=== PATIENT | male | born 1990 | race African-American/Black ===

== ENCOUNTER 2020-03-29 17:12 | Inpatient (IN) | payer MEDICAID ==
[~2020-03-29] VITALS: Ht 180.3 cm; Wt 87.7 kg
[2020-03-29 17:12] VITALS: BP 121/82
--- NOTE | 2020-03-29 17:12 | NUR ---
ED Nurse Note: Pt brought in by friends, unconscious. Pt's friend not aware of pt's medical history or any medications he is on. Pt A+Ox0 with low respiratory rate of 10 breaths per minute. HR 122 on the monitor, sinus tach. ED MD at bedside using bag valve mask on patient. Pt O2 sat 90%. Right AC 18 g inserted and 0.4 mg narcan given IVP. Pt now has more of gag reflex, reacting only to deep painful stimuli.
[2020-03-29] MEDS ORDERED: Naloxone 1mg/ml 2ml ONE (17:15)
--- NOTE | 2020-03-29 17:15 | NUR ---
ED Nurse Note: 1 mg narcan given IVP. Pt vomited and suctioned. Pt able to open eyes, but does not follow commands and is A+Ox0. O2 saturation 100%. HR 115. BP stable. Pt afebrile.
--- NOTE | 2020-03-29 17:27 | Emergency Room Report ---
History of Present Illness General Chief Complaint: To Be Triaged Source: Friend Present Illness HPI The patient was brought to the emergency department by friends. He was unresponsive and transported to the trauma bay via wheelchair. They provided no history. The patient is unresponsive and unable to give history. Allergies: Coded Allergies: No Known Allergies (Unverified , 03/29/20) Patient History Limited by: medical condition Past Medical History: see triage record Social History: Reports: drug use Social History Narrative Brought by friends Reviewed Nursing Documentation: PMH: Agreed; PSxH: Agreed Review of Systems All Other Systems: limited Physical Exam Vital Signs Date Time Temp Pulse Resp B/P (MAP) Pulse Ox O2 Delivery O2 Flow Rate FiO2 03/29/20 17:12 98.3 122 10 121/82 90 Ambu-Bag 03/29/20 20:12 2.0 Sp02 EP Interpretation: reviewed, abnormal - Interpreted as low by me General Appearance: other - Unresponsive Eyes: bilateral eye Scleral Injection, bilateral eye other - Pinpoint pupils ENT: moist mucus membranes - Stomach contents in upper airway suctioned Neck: other - Flaccid Respiratory: rhonchi Cardiovascular #1: tachycardia - Initially however patient heart rate decreased into the 90s Cardiovascular #2: 2+ radial (R) Gastrointestinal: non tender, decreased bowel sounds Genitourinary: normal inspection Musculoskeletal: other - Flaccid Neurologic: other - Unresponsive Psychiatric: other - Unresponsive Skin: diaphoresis, mottled Procedures Critical Care Time Critical Care Time Total Critical Care Time: 60 min bedside evaluation and treatment excludes procedures (EKG). Reason for critical care: Respiratory failure and free cardiac arrest emergent care. Repeated evaluations Possible complications: hypotension, hypertension, [place], shock, arrhythmias, metabolic acidosis, end organ damage, respiratory failure. Interventions: Assisted ventilations, suctioning, Narcan, repeat evaluations, Narcan drip Course: Patient presented unresponsive. Patient not protecting his airway. Near respiratory arrest with assisted ventilations reversing this along with emergent treatment with Narcan. Aggressive suctioning with patient with most likely aspiration prior to suctioning started. Patient awake and Narcan drip begun. Initial lactate elevated. Fluid bolus administered. Antibiotics started for possible pneumonia. Patient hypoxic which is corrected on oxygen. Repeated evaluations. Discussed with admitting physician. Discussed with patient near and advised to seek help regarding substance abuse. Consultations: nursing staff, EMS, respiratory therapy, admitting physician Performed by: Dr. Guerin Tolerated well condition = critical but improved on Narcan drip and oxygen Medical Decision Making Diagnostic Impression: Primary Impression: Narcotic overdose Qualified Codes: T40.601A - Poisoning by unspecified narcotics, accidental (unintentional), initial encounter Additional Impressions: Elevated lactic acid level Aspiration pneumonia Qualified Codes: J69.0 - Pneumonitis due to inhalation of food and vomit Hypoxia Substance abuse Renal insufficiency ER Course Patient presents unresponsive without gag reflex. Differential includes hypoglycemia, overdose, other toxic ingestion, electrolyte abnormality, postictal state amongst others. The following is the emergent care that was initially administered to patient: Patient unresponsive without gag and obstructing upper airway. Immediately assisted ventilations by me. Heart rate initially 122 and dropped down to 90s and then O2 sat with my ventilations dropped to 88% of 96%. IV established and Narcan given IV. Initially 0.4 with some minimal response. Suctioning by me as patient smells that he vomited. 1 mg of Narcan given and patient started responding to orders and commands. Narcan drip ordered. 1724 As patient responded to Narcan most likely opiates involved with episode. Post Narcan the patient has a nonfocal neurologic exam and CT of the head is not indicated at this time. EKG ST 103. Labs with elevated WBC, elevated creat, elevated CK, + tox screen benzodiazepines, cocaine, amphetamines and THC.. CXR no infiltrates. O2 sats low. Oxygen begun. Called for elevated lactate. Bolus ordered and antibiotic coverage. 1809 no x-ray evidence of aspiration pneumonia however patient clinically has aspirated. Repeat lactate improved. Suspect multifactorial. Patient not with evidence of sepsis. Patient remains awake and responsive on Narcan drip. Patient stable on Narcan drip. Discussed with admitting physician. Laboratory Tests Test 03/29/20 17:13 03/29/20 18:50 White Blood Count 14.1 K/UL (4.8-10.8) H Red Blood Count 4.52 M/UL (4.70-6.10) L Hemoglobin 14.6 G/DL (14.2-18.0) Hematocrit 44.4 % (42.0-52.0) Mean Corpuscular Volume 98 FL (80-99) Mean Corpuscular Hemoglobin 32.3 PG (27.0-31.0) H Mean Corpuscular Hemoglobin Concent 32.9 G/DL (32.0-36.0) Red Cell Distribution Width 13.2 % (11.6-14.8) Platelet Count 315 K/UL (150-450) Mean Platelet Volume 6.2 FL (6.5-10.1) L Neutrophils (%) (Auto) % (45.0-75.0) Lymphocytes (%) (Auto) % (20.0-45.0) Monocytes (%) (Auto) % (1.0-10.0) Eosinophils (%) (Auto) % (0.0-3.0) Basophils (%) (Auto) % (0.0-2.0) Differential Total Cells Counted 100 Neutrophils % (Manual) 13 % (45-75) L Lymphocytes % (Manual) 83 % (20-45) H Monocytes % (Manual) 2 % (1-10) Eosinophils % (Manual) 0 % (0-3) Basophils % (Manual) 2 % (0-2) Band Neutrophils 0 % (0-8) Platelet Estimate Adequate Platelet Morphology Normal Red Blood Cell Morphology Normal Sodium Level 137 MMOL/L (136-145) Potassium Level 3.4 MMOL/L (3.5-5.1) L Chloride Level 102 MMOL/L (98-107) Carbon Dioxide Level 28 MMOL/L (21-32) Anion Gap 7 mmol/L (5-15) Blood Urea Nitrogen 10 mg/dL (7-18) Creatinine 1.8 MG/DL (0.55-1.30) H Estimated Glomerular Filtration Rate 55.5 mL/min (>60) Glucose Level 299 MG/DL (74-106) H Lactic Acid Level 5.40 mmol/L (0.4-2.0) H 2.80 mmol/L (0.66-2.22) H Calcium Level 8.3 MG/DL (8.5-10.1) L Total Bilirubin 0.5 MG/DL (0.2-1.0) Aspartate Amino Transferase (AST) 35 U/L (15-37) Alanine Aminotransferase (ALT) 30 U/L (12-78) Alkaline Phosphatase 68 U/L (46-116) Total Creatine Kinase 994 U/L (26-308) H Troponin I 0.000 ng/mL (0.000-0.056) Total Protein 7.5 G/DL (6.4-8.2) Albumin 3.7 G/DL (3.4-5.0) Globulin 3.8 g/dL Albumin/Globulin Ratio 1.0 (1.0-2.7) Thyroid Stimulating Hormone (TSH) 0.896 uiU/mL (0.358-3.740) Salicylates Level 2.5 ug/mL (2.8-20) L Acetaminophen Level < 2 MCG/ML (10-30) L Serum Alcohol < 3 mg/dL Urine Color Pale yellow Urine Appearance Clear Urine pH 6 (4.5-8.0) Urine Specific [place] 1.020 (1.005-1.035) Urine Protein 2+ (NEGATIVE) H Urine Glucose (UA) 3+ (NEGATIVE) H Urine Ketones Negative (NEGATIVE) Urine Blood Negative (NEGATIVE) Urine Nitrite Negative (NEGATIVE) Urine Bilirubin Negative (NEGATIVE) Urine Urobilinogen Normal MG/DL (0.0-1.0) Urine Leukocyte Esterase Negative (NEGATIVE) Urine RBC 0 /HPF (0 - 0) Urine WBC 0 /HPF (0 - 0) Urine Squamous Epithelial Cells Occasional /LPF Urine Bacteria Few /HPF (NONE) Urine Starch Moderate Urine Mucus None /LPF (NONE/OCC) Urine Opiates Screen Negative (NEGATIVE) Urine Barbiturates Screen Negative (NEGATIVE) Phencyclidine (PCP) Screen Negative (NEGATIVE) Urine Amphetamines Screen Positive (NEGATIVE) H Urine Benzodiazepines Screen Positive (NEGATIVE) H Urine Cocaine Screen Positive (NEGATIVE) H Urine Marijuana (THC) Screen Positive (NEGATIVE) H Microbiology Date/Time Source Procedure Growth Status 03/29/20 17:10 Nasopharynx SARS-CoV-2 RdRp Gene Assay - Final Complete EKG Diagnostic Results Rate: tachycardiac Rhythm: NSR ST Segments: no acute changes Rhythm Strip Diag. Results EP Interpretation: yes Rhythm: no PVC's, no ectopy, other - ST 103 Chest X-Ray Diagnostic Results Chest X-Ray Diagnostic Results : Chest X-Ray Ordered: Yes # of Views/Limited/Complete: 1 View Indication: Other EP Interpretation: Yes Interpretation: no consolidation, no effusion, no pneumothorax Impression: No acute disease Electronically Signed by: Electronically signed by Deuce Guerin MD Last Vital Signs Date Time Temp Pulse Resp B/P (MAP) Pulse Ox O2 Delivery O2 Flow Rate FiO2 03/30/20 01:00 92 19 120/79 (93) 98 03/30/20 00:00 97.7 03/30/20 00:00 Nasal Cannula 2.0 Status: improved Disposition: ADMITTED INPATIENT Condition: Critical Deuce Guerin MD Mar 29, 2020 17:27
[2020-03-29] MEDS ORDERED: Naloxone 2 MG in D5W 500ml 498 ML IV SCH (17:30)
[2020-03-29] MEDS ORDERED: Naloxone 1mg/ml 2ml IVP ONE ×2 (17:30→17:45)
[2020-03-29] MEDS ORDERED: Naloxone 0.4mg/ml Inj IVP ONE (17:30)
[2020-03-29 17:37] LABS: HEMATOCRIT 44.4 % (42.0-52.0); HEMOGLOBIN 14.6 G/DL (14.2-18.0); MEAN CORPUSCULAR VOLUME 98 FL (80-99); PLATELET COUNT 315 K/UL (150-450); RED BLOOD COUNT 4.52 M/UL (4.70-6.10); RED CELL DISTRIBUTION WIDTH 13.2 % (11.6-14.8); WHITE BLOOD COUNT 14.1 K/UL (4.8-10.8)
[2020-03-29 17:46] LABS: ANION GAP 7 mmol/L (5-15); BLOOD UREA NITROGEN 10 mg/dL (7-18); CALCIUM 8.3 MG/DL (8.5-10.1); CARBON DIOXIDE 28 MMOL/L (21-32); CHLORIDE 102 MMOL/L (98-107); CREATININE 1.8 MG/DL (0.55-1.30); POTASSIUM 3.4 MMOL/L (3.5-5.1); SODIUM 137 MMOL/L (136-145)
[2020-03-29] MEDS ORDERED: Naloxone 0.4mg/ml Inj ONE (17:47)
[2020-03-29 17:59] LABS: ALANINE AMINOTRANSFERASE 30 U/L (12-78); ALBUMIN 3.7 G/DL (3.4-5.0); ALKALINE PHOSPHATASE 68 U/L (46-116); ASPARTATE AMINO TRANSFERASE 35 U/L (15-37); BILIRUBIN,TOTAL 0.5 MG/DL (0.2-1.0); CREATINE KINASE 994 U/L (26-308)
[2020-03-29] MEDS ORDERED: Azithromycin 500 MG in NS 275 ML IV ONE (18:15)
[2020-03-29] MEDS ORDERED: Piperacillin/Tazobactam 3.375 GM in NS 110 ML IVPB ONE (18:15)
--- NOTE | 2020-03-29 18:20 | Diagnostic Imaging Report ---
EXAM: XR Chest, 1 View CLINICAL HISTORY: ALOC TECHNIQUE: Frontal view of the chest. COMPARISON: None FINDINGS: Lungs: Unremarkable. No consolidation. Pleural space: Unremarkable. No pneumothorax. Heart: Unremarkable. No cardiomegaly. Mediastinum: Unremarkable. Bones/joints: Unremarkable. IMPRESSION: No acute cardiopulmonary process.
--- NOTE | 2020-03-29 18:36 | NUR ---
ED Nurse Note: Pt A+Ox4, second IV inserted. ABX started.
--- NOTE | 2020-03-29 18:45 | NUR ---
ED Nurse Note: Pt reports that he took xanax and he did not mean to hurt himself. Pt denies HI/SI. Pt is calm, cooperative, A+Ox4. Pt has some generalized weakness.
[2020-03-29 19:04] LABS: APPEARANCE,URINE CLEAR; BILIRUBIN, URINE NEGATIVE (NEGATIVE); COLOR,URINE PALE YELLOW; GLUCOSE, URINE (UA) 3+ (NEGATIVE); KETONES,URINE NEGATIVE (NEGATIVE); LEUKOCYTE ESTERASE ,URINE NEGATIVE (NEGATIVE); NITRITE,URINE NEGATIVE (NEGATIVE); PH,URINE 6 (4.5-8.0); PROTEIN,URINE 2+ (NEGATIVE); UROBILINOGEN,URINE NORMAL MG/DL (0.0-1.0)
--- NOTE | 2020-03-29 19:07 | NUR ---
HAND-OFF: Report given to PAULINE Juárez. Pt in stable condition; plan of care endorsed.
--- NOTE | 2020-03-29 19:08 | NUR ---
ED Nurse Note: Report received from JOSI Alexandra RN
--- NOTE | 2020-03-29 20:10 | NUR ---
ED Nurse Note: Patient is awake and alert on bed,AAOx4. VSS as documented
[2020-03-29 20:12] VITALS: BP 119/78
--- NOTE | 2020-03-29 21:00 | NUR ---
ED Nurse Note: Report given to MELIDA CARPENTER
--- NOTE | 2020-03-29 21:30 | NUR ---
TRANSFER TO FLOOR: Patient transferred to ICU at rm [id number] via gurney, with monitoring tech, accompanied by RN and tech ed teacher. Belongings given and checked with RN. Patient transferred safely to bed and endorsed to RN
--- NOTE | 2020-03-29 21:40 | NUR ---
NURSE NOTES: Received report from PAULINE Juárez. patient arrived to unit by grayson. patient awake alert oriented x3. respirations even and unlabored on 2L NC. BP126/93 HR 88 NSR on monitor and afebrile. right and left AC PIV #18 SL. patient does not recall incident leading up to his hospitalization. patient denies allergies, states only medical history of asthma. patient stated he took xanax and percocet. patient denies pain. skin cool dry intact. patient has jewlery on, $1400 money at bedside, one shoe and clothing at bedside. bed locked lowest position call light within reach.
--- NOTE | 2020-03-29 21:55 | NUR ---
NURSE NOTES: Dr. Nolen at bedside, aware of abnormal lab values. inpatient orders received, read back and carried out.
[2020-03-29 22:00] VITALS: BP 126/93
[2020-03-29] MEDS ORDERED: Albuterol/Ipratropium 3ml neb HHN PRN (22:00)
--- NOTE | 2020-03-29 22:10 | History and Physical ---
History of Present Illness General Date patient seen: Mar 29, 2020 Reason for Hospitalization: Overdose Present Illness HPI 28 year old drug over dose given narcain . pt is more awake , no sob pt has been taking street percocet and xanax. no cough Allergies: Coded Allergies: No Known Allergies (Unverified , 03/29/20) COVID-19 Screening Contact w/high risk pt: Yes Experienced COVID-19 symptoms?: No Patient History Healthcare decision maker Resuscitation status Advanced Directive on File Review of Systems Constitutional: Reports: no symptoms Eye: Reports: no symptoms Cardiovascular: Reports: no symptoms Gastrointestinal: Reports: no symptoms Genitourinary: Reports: no symptoms Neurological: Reports: no symptoms Physical Exam General Appearance: alert HEENT: normocephalic, atraumatic Neck: supple Respiratory/Chest: lungs clear Cardiovascular/Chest: normal rate Abdomen: non tender, soft Extremities: non-tender Skin Exam: warm/dry Neurologic: steward/stewardess club car II-XII grossly normal, oriented x 3 Last 24 Hour Vital Signs Date Time Temp Pulse Resp B/P (MAP) Pulse Ox O2 Delivery O2 Flow Rate FiO2 03/29/20 20:12 97.0 98 20 119/78 100 Nasal Cannula 2.0 98 03/29/20 17:24 97.0 102 25 109/87 (94) 100 Room Air 03/29/20 17:12 122 10 Ambu-Bag 03/29/20 17:12 98.3 122 10 121/82 90 Ambu-Bag Laboratory Tests Test 03/29/20 17:13 03/29/20 18:50 White Blood Count 14.1 K/UL (4.8-10.8) H Red Blood Count 4.52 M/UL (4.70-6.10) L Hemoglobin 14.6 G/DL (14.2-18.0) Hematocrit 44.4 % (42.0-52.0) Mean Corpuscular Volume 98 FL (80-99) Mean Corpuscular Hemoglobin 32.3 PG (27.0-31.0) H Mean Corpuscular Hemoglobin Concent 32.9 G/DL (32.0-36.0) Red Cell Distribution Width 13.2 % (11.6-14.8) Platelet Count 315 K/UL (150-450) Mean Platelet Volume 6.2 FL (6.5-10.1) L Neutrophils (%) (Auto) % (45.0-75.0) Lymphocytes (%) (Auto) % (20.0-45.0) Monocytes (%) (Auto) % (1.0-10.0) Eosinophils (%) (Auto) % (0.0-3.0) Basophils (%) (Auto) % (0.0-2.0) Differential Total Cells Counted 100 Neutrophils % (Manual) 13 % (45-75) L Lymphocytes % (Manual) 83 % (20-45) H Monocytes % (Manual) 2 % (1-10) Eosinophils % (Manual) 0 % (0-3) Basophils % (Manual) 2 % (0-2) Band Neutrophils 0 % (0-8) Platelet Estimate Adequate Platelet Morphology Normal Red Blood Cell Morphology Normal Sodium Level 137 MMOL/L (136-145) Potassium Level 3.4 MMOL/L (3.5-5.1) L Chloride Level 102 MMOL/L (98-107) Carbon Dioxide Level 28 MMOL/L (21-32) Anion Gap 7 mmol/L (5-15) Blood Urea Nitrogen 10 mg/dL (7-18) Creatinine 1.8 MG/DL (0.55-1.30) H Estimat Glomerular Filtration Rate 55.5 mL/min (>60) Glucose Level 299 MG/DL (74-106) H Lactic Acid Level 5.40 mmol/L (0.4-2.0) H 2.80 mmol/L (0.66-2.22) H Calcium Level 8.3 MG/DL (8.5-10.1) L Total Bilirubin 0.5 MG/DL (0.2-1.0) Aspartate Amino Transf (AST/SGOT) 35 U/L (15-37) Alanine Aminotransferase (ALT/SGPT) 30 U/L (12-78) Alkaline Phosphatase 68 U/L (46-116) Total Creatine Kinase 994 U/L (26-308) H Troponin I 0.000 ng/mL (0.000-0.056) Total Protein 7.5 G/DL (6.4-8.2) Albumin 3.7 G/DL (3.4-5.0) Globulin 3.8 g/dL Albumin/Globulin Ratio 1.0 (1.0-2.7) Thyroid Stimulating Hormone (TSH) 0.896 uiU/mL (0.358-3.740) Salicylates Level 2.5 ug/mL (2.8-20) L Acetaminophen Level < 2 MCG/ML (10-30) L Serum Alcohol < 3 mg/dL Urine Color Pale yellow Urine Appearance Clear Urine pH 6 (4.5-8.0) Urine Specific [place] 1.020 (1.005-1.035) Urine Protein 2+ (NEGATIVE) H Urine Glucose (UA) 3+ (NEGATIVE) H Urine Ketones Negative (NEGATIVE) Urine Blood Negative (NEGATIVE) Urine Nitrite Negative (NEGATIVE) Urine Bilirubin Negative (NEGATIVE) Urine Urobilinogen Normal MG/DL (0.0-1.0) Urine Leukocyte Esterase Negative (NEGATIVE) Urine RBC 0 /HPF (0 - 0) Urine WBC 0 /HPF (0 - 0) Urine Squamous Epithelial Cells Occasional /LPF Urine Bacteria Few /HPF (NONE) Urine Starch Moderate Urine Mucus None /LPF (NONE/OCC) Urine Opiates Screen Negative (NEGATIVE) Urine Barbiturates Screen Negative (NEGATIVE) Phencyclidine (PCP) Screen Negative (NEGATIVE) Urine Amphetamines Screen Positive (NEGATIVE) H Urine Benzodiazepines Screen Positive (NEGATIVE) H Urine Cocaine Screen Positive (NEGATIVE) H Urine Marijuana (THC) Screen Positive (NEGATIVE) H Microbiology Date/Time Source Procedure Growth Status 03/29/20 17:10 Nasopharynx SARS-CoV-2 RdRp Gene Assay - Final Complete Height (Feet): 5 Height (Inches): 11.00 Weight (Pounds): 180 Medications Current Medications Medications (Trade) Dose Ordered Sig/Angel Route PRN Reason Start Time Stop Time Status Last Admin Dose Admin Naloxone HCl 2 mg/ Dextrose 500 ml @ 0 mls/hr Q24H IV 03/29/20 17:30 04/28/20 17:29 03/29/20 17:54 Sodium Chloride 1,000 ml @ 300 mls/hr Q3H20M IV 03/29/20 17:30 04/28/20 17:29 03/29/20 20:42 Assessment/Plan Status: doing well Diagnosis Embarrass I: drug over dose ac resp failure cont narcane drip bronchodilator tx psych consult dw charge nurse Rupert Nolen MD Mar 29, 2020 22:10
[2020-03-29 23:00] VITALS: BP 122/88
[2020-03-30] VITALS (19 sets, daily range): BP systolic 108–150; BP diastolic 71–117
--- NOTE | 2020-03-30 | NUR ---
NURSE NOTES: patient awake alert oriented x4. respirations even and unlabored on 2L NC. BP116/71 HR 92 NSR on monitor and afebrile. right and left AC PIV #18 running narcan at 0.5mg/hr. patient able to eat sandwich and juice provided. patient able to use urinal, straw colored urine noted. bed locked lowest position call light within reach.
[2020-03-30] MEDS: Naloxone 2 MG in D5W 500ml 498 ML IV SCH ×2 (00:13→02:50)
--- NOTE | 2020-03-30 02:00 | NUR ---
NURSE NOTES: patient asleep arousable to name, respirations even and unlabored on 2L NC. BP114/76 HR 86 NSR on monitor and afebrile. right and left AC PIV #18 running narcan at 0.5mg/hr. patient had one episode of emesis, prn zofran administered. patient able to use urinal, straw colored urine noted. patient repositioned self. bed locked lowest position call light within reach.
[2020-03-30] MEDS ORDERED: Naloxone 0.4mg/ml Inj IV ONE (03:00)
--- NOTE | 2020-03-30 04:00 | NUR ---
NURSE NOTES: patient asleep arousable to name, respirations even and unlabored on 2L NC. BP116/71 HR 98 NSR on monitor and afebrile. right and left AC PIV #18 running narcan at 0.5mg/hr and NS @300ml/hr asymptomatic. patient stated feeling relief from prn zofran. patient repositioned self. bed locked lowest position call light within reach.
--- NOTE | 2020-03-30 06:00 | NUR ---
NURSE NOTES: patient asleep arousable to name, respirations even and unlabored on 2L NC. BP116/93 HR 82 NSR on monitor and afebrile. right and left AC PIV #18 running narcan at 0.5mg/hr and NS @300ml/hr asymptomatic. patient refused to be swabbed for VRE/MRSA and refused to have labs drawn at this time. skin intact with scab noted on right shine. patient repositioned self. bed locked lowest position call light within reach.
--- NOTE | 2020-03-30 07:25 | NUR ---
NURSE HAND-OFF REPORT: Latest Vital Signs: Temperature 98.0 , Pulse 85 , B/P 128 /96 , Respiratory Rate 14 , O2 SAT 98 , Nasal Cannula, O2 Flow Rate 2.0 . Vital Sign Comment: WNL EKG Rhythm: Sinus Rhythm Rhythm change?: N MD Notified?: - MD Response: Latest Morel Fall Score: 35 Fall Risk: Medium Risk Safety Measures: Call light Within Reach, Bed Alarm Zone 1, Side Rails Side Rails x2, Bed position Low and Locked. Fall Precautions: Report given to PAULINE Sky.
--- NOTE | 2020-03-30 07:26 | NUR ---
NURSE NOTES: Received patient in bed. Awake, alert, verbal, able to make needs known. Call light within reach. Patient is on room air, no respiratory distress. On continuous IVF of NS running at 300ml/hour and narcan drip at 0.25mg/hour. Patient denies pain. Standard precautions observed. Will continue plan of care.
--- NOTE | 2020-03-30 08:00 | NUR ---
NURSE NOTES: Able to feed self. Patient tolerated breakfast meal. Ate 75% of breakfast tray. No complaints of vomiting.
--- NOTE | 2020-03-30 10:44 | NUR ---
NURSE NOTES: Spoke to patient regarding refusal of labs. Explained the importance of the repeat of the abnormal labs. Patient voiced his understanding and has now consented to the lab draw. Called lab to draw am labs in addition to repeat lactic and CPK.
[2020-03-30 11:24] LABS: BASOPHILS % (AUTO) 1.6 % (0.0-2.0); EOSINOPHILS % (AUTO) 2.4 % (0.0-3.0); HEMATOCRIT 40.2 % (42.0-52.0); HEMOGLOBIN 13.2 G/DL (14.2-18.0); LYMPHOCYTES % (AUTO) 30.4 % (20.0-45.0); MEAN CORPUSCULAR VOLUME 93 FL (80-99); NEUTROPHILS % (AUTO) 60.7 % (45.0-75.0); PLATELET COUNT 295 K/UL (150-450); RED BLOOD COUNT 4.33 M/UL (4.70-6.10); RED CELL DISTRIBUTION WIDTH 12.1 % (11.6-14.8); WHITE BLOOD COUNT 6.9 K/UL (4.8-10.8)
--- NOTE | 2020-03-30 11:25 | NUR ---
NURSE NOTES: Dr. Nolen at bedside. With orders to discontinue narcan drip and IVF of NS at 300ml/hour. And to have Psych consult with Dr. Thomas, and to transfer patient to med surg unit.
[2020-03-30 11:37] LABS: ANION GAP 4 mmol/L (5-15); BLOOD UREA NITROGEN 4 mg/dL (7-18); CALCIUM 7.3 MG/DL (8.5-10.1); CARBON DIOXIDE 29 MMOL/L (21-32); CHLORIDE 106 MMOL/L (98-107); CREATININE 1.2 MG/DL (0.55-1.30); POTASSIUM 3.8 MMOL/L (3.5-5.1); SODIUM 139 MMOL/L (136-145)
[2020-03-30 11:39] LABS: CREATINE KINASE 681 U/L (26-308)
--- NOTE | 2020-03-30 11:45 | General Progress Note ---
Subjective Date patient seen: Mar 30, 2020 Constitutional: Reports: no symptoms Cardiovascular: Reports: no symptoms Respiratory: Reports: no symptoms Gastrointestinal/Abdominal: Reports: no symptoms Genitourinary: Reports: no symptoms Neurologic/Psychiatric: Reports: no symptoms Allergies: Coded Allergies: No Known Allergies (Unverified , 03/29/20) Objective Last 24 Hour Vital Signs Date Time Temp Pulse Resp B/P (MAP) Pulse Ox O2 Delivery O2 Flow Rate FiO2 03/30/20 11:00 83 14 138/98 (111) 100 03/30/20 10:00 83 16 108/77 (87) 97 03/30/20 09:00 87 20 130/92 (105) 97 03/30/20 08:00 Room Air 03/30/20 08:00 98.1 90 137/92 (107) 03/30/20 07:32 92 03/30/20 07:00 85 14 128/96 (107) 98 03/30/20 06:00 82 18 116/93 (101) 98 03/30/20 05:00 87 20 111/74 (86) 99 03/30/20 04:00 98.0 98 25 116/71 (86) 98 03/30/20 04:00 Nasal Cannula 2.0 03/30/20 04:00 76 03/30/20 03:00 79 15 121/75 (90) 99 03/30/20 02:00 86 17 114/76 (89) 98 03/30/20 01:00 92 19 120/79 (93) 98 03/30/20 00:00 95 03/30/20 00:00 97.7 92 16 116/71 (86) 98 03/30/20 00:00 Nasal Cannula 2.0 03/29/20 23:00 94 24 122/88 (99) 99 03/29/20 22:21 98.0 85 18 135/85 100 Nasal Cannula 2.0 85 03/29/20 22:10 Nasal Cannula 2.0 03/29/20 22:00 97.7 88 21 126/93 (104) 100 88 03/29/20 22:00 87 03/29/20 20:12 97.0 98 20 119/78 100 Nasal Cannula 2.0 98 03/29/20 17:24 97.0 102 25 109/87 (94) 100 Room Air 03/29/20 17:12 122 10 Ambu-Bag 03/29/20 17:12 98.3 122 10 121/82 90 Ambu-Bag Intake and Output 03/29/20 03/30/20 19:00 07:00 Intake Total 3695.88964 ml Output Total 900 ml Balance 2795.57722 ml Intake Oral 360 ml IV Total 3335.78771 ml Output Urine Total 900 ml # Voids 1 Laboratory Tests 03/29/20 17:13: White Blood Count 14.1H, Red Blood Count 4.52L, Hemoglobin 14.6, Hematocrit 44.4, Mean Corpuscular Volume 98, Mean Corpuscular Hemoglobin 32.3H, Mean Corpuscular Hemoglobin Concent 32.9, Red Cell Distribution Width 13.2, Platelet Count 315, Mean Platelet Volume 6.2L, Neutrophils (%) (Auto) , Lymphocytes (%) (Auto) , Monocytes (%) (Auto) , Eosinophils (%) (Auto) , Basophils (%) (Auto) , Differential Total Cells Counted 100, Neutrophils % (Manual) 13L, Lymphocytes % (Manual) 83H, Monocytes % (Manual) 2, Eosinophils % (Manual) 0, Basophils % (Manual) 2, Band Neutrophils 0, Platelet Estimate Adequate, Platelet Morphology Normal, Red Blood Cell Morphology Normal, Sodium Level 137, Potassium Level 3.4L , Chloride Level 102, Carbon Dioxide Level 28, Anion Gap 7, Blood Urea Nitrogen 10, Creatinine 1.8H, Estimat Glomerular Filtration Rate 55.5, Glucose Level 299H , Lactic Acid Level 5.40H, Calcium Level 8.3L, Total Bilirubin 0.5, Aspartate Amino Transf (AST/SGOT) 35, Alanine Aminotransferase (ALT/SGPT) 30, Alkaline Phosphatase 68, Total Creatine Kinase 994H, Troponin I 0.000, Total Protein 7.5, Albumin 3.7, Globulin 3.8, Albumin/Globulin Ratio 1.0, Thyroid Stimulating Hormone (TSH) 0.896, Salicylates Level 2.5L, Acetaminophen Level < 2L, Serum Alcohol < 3 03/29/20 18:50: Lactic Acid Level 2.80H, Urine Color Pale yellow, Urine Appearance Clear, Urine pH 6, Urine Specific [place] 1.020, Urine Protein 2+H, Urine Glucose (UA) 3+H, Urine Ketones Negative, Urine Blood Negative, Urine Nitrite Negative, Urine Bilirubin Negative, Urine Urobilinogen Normal, Urine Leukocyte Esterase Negative, Urine RBC 0, Urine WBC 0, Urine Squamous Epithelial Cells Occasional, Urine Bacteria Few, Urine Starch Moderate, Urine Mucus None, Urine Opiates Screen Negative, Urine Barbiturates Screen Negative, Phencyclidine (PCP) Screen Negative, Urine Amphetamines Screen PositiveH, Urine Benzodiazepines Screen PositiveH, Urine Cocaine Screen PositiveH, Urine Marijuana (THC) Screen PositiveH 03/30/20 11:00: White Blood Count 6.9#, Red Blood Count 4.33L, Hemoglobin 13.2L, Hematocrit 40.2L, Mean Corpuscular Volume 93, Mean Corpuscular Hemoglobin 30.6, Mean Corpuscular Hemoglobin Concent 32.9, Red Cell Distribution Width 12.1, Platelet Count 295, Mean Platelet Volume 6.6, Neutrophils (%) (Auto) 60.7, Lymphocytes (%) (Auto) 30.4, Monocytes (%) (Auto) 5.0, Eosinophils (%) (Auto) 2.4, Basophils (%) (Auto) 1.6, Sodium Level 139, Potassium Level 3.8, Chloride Level 106, Carbon Dioxide Level 29, Anion Gap 4L, Blood Urea Nitrogen 4L, Creatinine 1.2, Estimat Glomerular Filtration Rate > 60, Glucose Level 95#, Lactic Acid Level [Pending], Calcium Level 7.3L, Total Creatine Kinase 681H, HIV (1&2) Antibody Rapid [Pending] Height (Feet): 5 Height (Inches): 11.00 Weight (Pounds): 182 General Appearance: WD/WN EENT: PERRL/EOMI Neck: supple Cardiovascular: normal rate Respiratory/Chest: lungs clear Abdomen: non tender, soft, no organomegaly Extremities: non-tender Neurologic: document control manager II-XII grossly normal, alert Assessment/Plan Status: doing well Assessment/Plan: multi drug abused ac resp distress resolved dc ivf psych eval rpt labs dc plan per psych clearence Rupert Nolen MD Mar 30, 2020 11:45
--- NOTE | 2020-03-30 11:49 | NUR ---
CASE MANAGEMENT:REVIEW 28 YR OLD MALE CARRIED IN TO ER BY FRIEND CC; UNRESPONSIVENESS SI: OVERDOSE. ASPIRATION PNA 97.0 122 25 109/87 100% ON RA WBC+14.1 CR+1.8 TCK+994 URINE(+) AMPHETAMINES,BENZODIAZEPINES,COCAINE AND THC IS: PLACED ON 2L/NC 1L NS BOLUS IV NALOXONE X3 1L NS BOLUS IV ZOSYN IV AZITHROMYCIN : TO ICU
--- NOTE | 2020-03-30 13:00 | NUR ---
NURSE NOTES: Tolerated lunch meal. Able to feed self. No respiratory distress.
--- NOTE | 2020-03-30 16:50 | NUR ---
TRANSFER TO FLOOR: Patient transferred to Med Surg room 405-1, per Dr. Nolen. Report given to PAULINE Calderon. Belongings given to PAULINE Calderon. Patient on continuos IVF of NS running at 125 ml/hour. Remains stable, on room air, no shortness of breath.
--- NOTE | 2020-03-30 17:00 | NUR ---
NURSE NOTES: Pt came up to unit via hospital bed w/all belongings accounted for. Pt A&Ox4, VSS, and in no apparent distress. IV sites intact/asymptomatic w/IVF infusing and skin intact. Pt has no complaints or concerns at this time. Will continue to monitor.
--- NOTE | 2020-03-30 19:30 | NUR ---
NURSE NOTES: Patient asleep in bed, on room air, no SOB noted. IV access on bilateral arms NS @ 125 connected on left antecubital @ 125cc/hr. Instructed to use call light for assistance. Bed in lowest and lock engaged. Will continue to monitor.
--- NOTE | 2020-03-30 19:30 | NUR ---
NURSE HAND-OFF: Important Events on Shift: Pt transferred to unit from ICU in stable condition. Patient Status: Stable Diet: Regular Latest Vital Signs: Temperature 97.3 , Pulse 87 , B/P 136 /99 , Respiratory Rate 20 , O2 SAT 94 , Room Air, O2 Flow Rate 2.0 . Latest Morel Fall Score: 35 Fall Risk: Medium Risk Safety Measures: Call light Within Reach, Bed Alarm Zone 2, Side Rails Side Rails x2, Bed position Low and Locked. Fall Precautions: Yellow Socks Yellow Gown Door Sign Patient Fall Education Report given to PAULINE Nguyen.
[2020-03-31] VITALS: BP 142/91
--- NOTE | 2020-03-31 01:07 | NUR ---
NURSE NOTES: Patient refused 4am vital signs monitoring. He said he wants to sleep.
--- NOTE | 2020-03-31 06:49 | NUR ---
NURSE NOTES: Patient was educated for IVF hydration. Reminded multiple times for IV site's position. He didn't want to be disturbed most of the time.
--- NOTE | 2020-03-31 06:56 | NUR ---
NURSE HAND-OFF: Important Events on Shift: Patient Status: Diet: regular Pending Orders: Pending Results/Labs: Pending MD notification: Latest Vital Signs: Temperature 97.7 , Pulse 74 , B/P 142 /91 , Respiratory Rate 20 , O2 SAT 97 , Room Air, O2 Flow Rate 2.0 . Vital Sign Comment: Latest Morel Fall Score: 35 Fall Risk: Medium Risk Safety Measures: Call light Within Reach, Bed Alarm Zone 2, Side Rails Side Rails x2, Bed position Low and Locked. Fall Precautions: Yellow Socks Yellow Gown Door Sign Patient Fall Education
--- NOTE | 2020-03-31 07:33 | NUR ---
HAND-OFF: Report given to PAULINE Aguiar.
--- NOTE | 2020-03-31 07:41 | NUR ---
NURSE NOTES: Received report from PAULINE Mccarthy. Patient seen in bed eating breakfast, AAOX 4, on room air, ambulatory, and able to make needs known. Breathing is even and unlabored with no SOB noted at this time. VS has been stable per previous shift. IV site patent and intact. Skin is intact except for scab on right shine. RN instructed patient to use call light for assistance if needed. Bed is locked and placed in lowest position. Call light within reach. Will continue to monitor
[2020-03-31 08:00] VITALS: BP 128/85
--- NOTE | 2020-03-31 10:49 | NUR ---
AMA: SEE AMA FORM.
--- NOTE | 2020-03-31 10:49 | NUR ---
NURSE NOTES: Patient left AMA. Patient was continuously checked by RN and explained why hes still here. Patient was compliant and patient at the time. While RN was in the nursing station patient suddenly left room and wanted to leave the floor without any warnings to RN. RN then saw patient and girlfriend trying to enter the elevator, RN then asked patient to wait and to sign the AMA, but patient refused and continued to leave the floor. Patient is AAOx4. RN was not able to get a clear look of the patients arm to see if IV site is there so RN checked the room to see and no evidence of IV site being pulled out. Patient seems to have taken all belonging with him as well. Patient is known drug user. RN notified charge nurse as well as properties supervisor and was informed to call the [employer] to locate suspect and check if IV site is still on patient, but RN was on hold for 10-15 minutes and will continue to be on hold until able to talk to a account development representative. RN notified PCP as well.
--- NOTE | 2020-03-31 11:40 | NUR ---
NURSE NOTES: RN called police station and spoke to wire saw operator [phone] in regards to the patients recent AMA/elopement. Per wire saw operator she will send a precinct police captain here, no time estimate was given. Will await officer
--- NOTE | 2020-03-31 12:15 | NUR ---
NURSE NOTES: loan service officer Sherly came to the floor and spoke with RN. Rn made officers aware of situation. loan service officer said they will sweep the area and notify RN if they find the patient. The incident report number is [id number]. RN made charge nurse and home restoration service supervisor aware.
--- NOTE | 2020-03-31 19:15 | Discharge Summary ---
DATE OF ADMISSION: 03/29/2020 DATE OF DISCHARGE: 03/31/2020 HOSPITAL COURSE: This is a 29-year-old male came with acute respiratory failure due to IV drugs. Patient was admitted in ICU, did very well. He was given Narcan drip. Later on, he became more responsive and comfortable. Patient wants to go home. Physically, he was doing fine. Able to walk. He went AMA and patient was recommended not to take drugs. Sanju Nolen M.D. DR: SATHYA JOB#: [id number] CC:
--- NOTE | 2020-04-01 10:42 | Discharge Summary ---
Discharge Summary Discharge Summary _ DISCHARGE SUMMARY ( please refer to discharge summary dictated by Anisa) DISCHARGE DIAGNOSES Narcotic overdose Lactic acidosis Acute hypoxemic failure - resolved Acute kidney injury -resolved Polysubstance abuse /cocaine amphetamine marijuana Berta Jay NP Apr 01, 2020 10:42
== END 2020-03-31 10:49 | disposition left against medical advice (07) | DRG 812 ==
LOC: EMR 17:33 → ICU 18:18 → EDBD 18:18 → EDBEDREQ 20:46 → 4E 03-30 16:35
DX: T40.691A Poisoning by other narcotics, accidental (unintentional), initial encounter (principal); J96.01 Acute respiratory failure with hypoxia; E87.2 Acidosis; N17.9 Acute kidney failure, unspecified; F14.10 Cocaine abuse, uncomplicated; F15.10 Other stimulant abuse, uncomplicated; F12.10 Cannabis abuse, uncomplicated
CPT/HCPCS: 36415; 71045; 80048; 80053; 80307; 81003; 82550; 83605; 84443; 84484; 85007; 85025; 86703; 87040; 93005; 96361; 96365; 96367; 96375; 96376; 99285; G0480; J2310; J2405; J7030; U0002